=== PATIENT | male | born 1965 | race Caucasian/White ===

== ENCOUNTER 2019-05-10 10:46 | Emergency (ER) | payer BC ==
[~2019-05-10] VITALS: Ht 188 cm; Wt 100.0 kg
[2019-05-10 10:52] VITALS: Ht 188 cm; Wt 100.0 kg
[2019-05-10] MEDS ORDERED: LORAZEPAM 2 MG INJ IV ONE (11:30)
[2019-05-10] MEDS ORDERED: MORP-58 PO (12:09)
[2019-05-10] MEDS ORDERED: OXYC5CAP17 PO (12:10)
--- NOTE | 2019-05-10 13:37 | ERD ---
ER Documentation Chief Complaint Chief Complaint NAUSEA TODAY, SWLLING BODY FOR 3 DAYS, RESOLVED NOW, WHIT COLOR STOOL X 3 D HPI Patient is a 53-year-old male with no medical problems who presents with nausea. He also mentions that his stool was white for the past 3 days. He felt swelling in his feet and ankles and felt "inflated yesterday" but said that it was improved today. He has been dealing with these issues for the past few months. He denies any liver issues. He did have a CT scan and MRI of his back a few weeks ago and is in the area to get his back surgery fixed. He usually lives in [place] which is where his primary doctor is. ROS All systems reviewed and are negative except as per history of present illness. Medications Home Meds Reported Medications Oxycodone Hcl* (IR) (Oxycodone Hcl*) 5 Mg Capsule, 5 MG PO 6 TIMES A DAY PRN for PAIN, CAP 05/10/19 Morphine Sulfate* (Oramorph SR*) 30 Mg Tablet.sa, 30 MG PO Q8, TAB.SA 05/10/19 Allergies Allergies: Coded Allergies: No Known Allergy (Unverified , 05/10/19) PMhx/Soc Medical and Surgical Hx: pt denies Medical Hx FmHx Family History: No diabetes Physical Exam Vitals Vital Signs Date Temp Pulse Resp B/P (MAP) Pulse Ox O2 O2 Flow FiO2 Time Delivery Rate 05/10/19 98.1 77 18 116/66 99 10:52 (83) Physical Exam Const: No acute distress Head: Atraumatic Eyes: Normal Conjunctiva ENT: Normal External Ears, Nose and Mouth. Neck: Full range of motion. No meningismus. Resp: Clear to auscultation bilaterally Cardio: Regular rate and rhythm, no murmurs Abd: Soft, non tender, non distended. Normal bowel sounds Skin: No petechiae or rashes Back: No midline or flank tenderness Ext: No cyanosis, or edema Neur: Awake and alert Psych: Normal Mood and Affect Result Diagram: 05/10/19 1116 05/10/19 1116 Results 24 hrs Laboratory Tests Test 05/10/19 11:16 White Blood Count 7.9 10^3/ul Red Blood Count 4.59 10^6/ul Hemoglobin 14.2 g/dl Hematocrit 43.0 % Mean Corpuscular Volume 93.7 fl Mean Corpuscular Hemoglobin 30.9 pg Mean Corpuscular Hemoglobin Concent 33.0 g/dl Red Cell Distribution Width 12.5 % Platelet Count 299 10^3/UL Mean Platelet Volume 9.1 fl Immature Granulocytes % 0.100 % Neutrophils % 70.6 % Lymphocytes % 22.5 % Monocytes % 5.6 % Eosinophils % 0.8 % Basophils % 0.4 % Nucleated Red Blood Cells % 0.0 /100WBC Immature Granulocytes # 0.010 10^3/ul Neutrophils # 5.6 10^3/ul Lymphocytes # 1.8 10^3/ul Monocytes # 0.4 10^3/ul Eosinophils # 0.1 10^3/ul Basophils # 0.0 10^3/ul Nucleated Red Blood Cells # 0.0 10^3/ul Urine Color YELLOW Urine Clarity CLEAR Urine pH 5.0 Urine Specific [place] 1.019 Urine Ketones NEGATIVE mg/dL Urine Nitrite NEGATIVE mg/dL Urine Bilirubin NEGATIVE mg/dL Urine Urobilinogen NEGATIVE mg/dL Urine Leukocyte Esterase NEGATIVE Gopi/ul Urine Microscopic RBC 1 /HPF Urine Microscopic WBC 1 /HPF Urine Mucus FEW /HPF Urine Hemoglobin 2+ mg/dL Urine Glucose NEGATIVE mg/dL Urine Total Protein NEGATIVE mg/dl Sodium Level 142 mmol/L Potassium Level 4.2 mmol/L Chloride Level 105 mmol/L Carbon Dioxide Level 27 mmol/L Anion Gap 10 Blood Urea Nitrogen 13 mg/dl Creatinine 0.86 mg/dl Est Glomerular Filtrat Rate mL/min > 60 mL/min Glucose Level 92 mg/dl Calcium Level 9.8 mg/dl Total Bilirubin 0.8 mg/dl Direct Bilirubin 0.00 mg/dl Indirect Bilirubin 0.8 mg/dl Aspartate Amino Transf (AST/SGOT) 18 IU/L Alanine Aminotransferase (ALT/SGPT) 26 IU/L Alkaline Phosphatase 54 IU/L Troponin I < 0.012 ng/ml B-Type Natriuretic Peptide 48 PG/ML Total Protein 7.3 g/dl Albumin 4.2 g/dl Globulin 3.10 g/dl Albumin/Globulin Ratio 1.35 Lipase 439 U/L Current Medications Medications Dose Sig/Christina Start Time Status Last (Trade) Ordered Route PRN Stop Time Admin Dose Reason Admin Lorazepam 1 mg ONCE ONCE 05/10/19 DC (Ativan) IV 11:30 05/10/19 11:30 Procedures/MDM Patient is a 53-year-old male who presents with complaints of edema and white stools. Laboratory studies are basically normal. Creatinine is normal. LFTs are normal. He is otherwise well-appearing and in no distress. I believe outpatient management is appropriate. He will need to follow-up closely with a primary doctor and I provided a list of local [facility]. He can return for any worsening symptoms. Departure Diagnosis: Primary Impression: Edema Edema type: unspecified Qualified Codes: R60.9 - Edema, unspecified Condition: Fair Patient Instructions: Peripheral Edema, Bilateral Referrals: [facility] YOU HAVE RECEIVED A MEDICAL SCREENING EXAM AND THE RESULTS INDICATE THAT YOU DO NOT HAVE A CONDITION THAT REQUIRES URGENT TREATMENT IN THE EMERGENCY DEPARTMENT. FURTHER EVALUATION AND TREATMENT OF YOUR CONDITION CAN WAIT UNTIL YOU ARE SEEN IN YOUR DOCTORS OFFICE WITHIN THE NEXT 1-2 DAYS. IT IS YOUR RESPONSIBILITY TO MAKE AN APPOINTMENT FOR FOLOW-UP CARE. IF YOU HAVE A PRIMARY DOCTOR --you should call your primary doctor and schedule an appointment IF YOU DO NOT HAVE A PRIMARY DOCTOR YOU CAN CALL OUR PHYSICIAN REFERRAL HOTLINE AT IF YOU CAN NOT AFFORD TO SEE A PHYSICIAN YOU CAN CHOSE FROM THE FOLLOWING [facility] [address] [facility]. [facility] [address] [facility]. [facility] [address] [facility] [facility] [address] [facility]. [facility] [address] [facility]. [facility]. [address] Additional Instructions: Call your primary care doctor TOMORROW for an appointment during the next 1 WEEK.Tell the assistant secretary that you were referred from this facility.See the doctor sooner or return here if your condition worsens before your appointment time. HORACIO SILVA MD May 10, 2019 13:37
[2019-05-10 13:50] VITALS: BP 97/61; PULSE 60; RESP 18
== END 2019-05-10 13:56 | disposition home or self-care (01) ==
LOC: E/R 10:46
DX: R60.9 Edema, unspecified (principal)
CPT/HCPCS: 36415; 80053; 81001; 83690; 83880; 84484; 85025